=== PATIENT | female | born 1995 | race Caucasian/White ===

== ENCOUNTER 2021-02-15 22:54 | Emergency (ER) | payer MEDICAID, SELFPAY ==
[2021-02-15 22:55] VITALS: BP 160/90; PULSE 100; RESP 18; TEMP 36.6; O2SAT 97; BMI 26.6
--- NOTE | 2021-02-15 23:39 | EDS_ITS ---
HPI History of Present Illness Chief Complaint: Laceration Informant: patient and parent Narrative Narrative: 45-year-old female was washing a glass when it broke and lacerated her right index finger at the index MCP joint. Last tetanus shot was about 6 years ago. She is right-hand dominant. Tetanus Immunization: 5-10 years [facility], [facility] Medical History no medical history Home Medications Prozac 40 mg PO/SL DAILY 02/15/21 [History Last Taken Unknown] aripiprazole [Abilify] 5 mg PO DAILY 02/15/21 [History Last Taken Unknown] cephalexin 500 mg PO Q6 #20 capsule 02/15/21 [Rx Last Taken Unknown] Allergy/AdvReac Type Severity Reaction Status Date / Time No Known Allergies Allergy Verified 02/15/21 22:57 Family History no significant family his Surgical History no surgical history Social History (Updated 02/15/21 @ 23:[address] Tyler Alvarado, DO) Smoking Status: Never smoker substance use type: does not use ROS ROS ED Constitutional Constitutional ED: Denies chills, fever(s) or weight loss Eyes Eyes: Denies change in vision or diplopia ENT ENT ED: Denies ear pain, rhinorrhea or sore throat Cardiovascular Cardiovascular: Denies chest pain, orthopnea, palpitations or racing heartbeat Respiratory/Chest Respiratory/Chest: Denies cough, dyspnea or orthopnea Gastrointestinal Gastrointestinal: Denies abdominal pain, diarrhea, nausea or vomiting Genitourinary Genitourinary ED: Denies dysuria, hematuria or urinary frequency Musculoskeletal Musculoskeletal: Denies arthralgias or myalgias Integumentary Reports other Details: laceration ; Denies abscess or rash Neurologic Neurologic: Denies headache(s) or weakness Psychiatric Psychiatric: Denies anxiety, depression, suicidal ideation or suicidal thoughts Endocrine Endocrinology: Denies polydipsia, polyphagia or polyuria Allergic/Immunologic Allergic/Immunologic ED: Denies mouth swelling, tongue swelling or urticaria EXAM Physical Exam Const Vital Signs: 02/15/21 22:55 Temperature 97.9 F Temperature Source Temporal Pulse Rate 100 Respiratory Rate 18 Blood Pressure 160/90 H Blood Pressure Mean 113 Pulse Ox 97 Oxygen Delivery Method Room Air Positive well nourished and well developed General Appearance ED: well developed HEENT Reports normocephalic, head/scalp atraumatic, TM's clear and moist mucous membranes atraumatic Tympanic Membrane ED: Yes TM's clear Eyes PERRL and EOMs intact bilaterally Neck no lymphadenopathy, supple and no JVD Resp normal respiratory effort and clear to auscultation bilaterally Cardio regular rate, regular rhythm and no murmurs Rate: regular rate GI normal to inspection, nondistended, normoactive bowel sounds and non-tender Palpation: soft Back/Spine no CVA tenderness and normal ROM Extremity full ROM General Extremety ED: Negative for edema General Extremity: Negative for edema Neuro oriented x3 and CN's II-XII intact bilaterally Sensorium / Orientation: alert Motor Exam: strength 5/5 throughout Psych mental status grossly normal Mood & Affect: Negative for depressed or tearful Skin no rashes or lesions noted Skin Narrative: There is a 2 cm flap laceration over the dorsum of the right index finger MCP joint. The tendon is visualized. There is normal tendon function. The tendon does appear slightly frayed MDM MDM MDM Narrative Medical decision making narrative: The wound was locally anesthetized using 1% lidocaine. Was washed with Shur-Clens and irrigated with sterile saline and explored. Finger was taken through its range of motion I do not see a significant laceration of the extensor tendon that needs to be repaired. There is a very small area that appears to be slightly frayed. Wound was closed using 4 simple erupted 4-0 Ethilon sutures. Patient will be started on Keflex. She will be placed in AlumaFoam splint. Wound care discussed with patient return if worsening or concerns Discharge Plan Triage Chief Complaint: Laceration ED Provider: Tyler Alvarado Dx/Rx/DC Orders Clinical Impression: Laceration of right index finger, Extensor tendon laceration of hand with open wound Instructions: ED Laceration, Hand: All Closures, ED Tendon Laceration Prescriptions: New cephalexin [cephalexin] 500 MG capsule 500 mg PO Q6 Qty: 20 RF: 0 No Action aripiprazole [Abilify] 5 mg Tablet 5 mg PO DAILY RF: 0 Prozac 40 mg PO/SL DAILY RF: 0 Primary Care Provider: Care Physician,No Primary Referrals: Care Physician,No Primary [Primary Care Provider] - Clinic,NOW [NON-STAFF] - 10 Day for suture removal Disposition Disposition: Home, Self Care
[2021-02-15] MEDS: Lidocaine 1% (20 ml mdv) 20 ML Vial INFILT (23:43)
[2021-02-15] MEDS: Cephalexin 250 MG Capsule 500 MG PO (23:46)
== END 2021-02-15 23:50 | disposition home or self-care (01) ==
PROVIDERS: Emergency Provider Emergency Medicine
DX: S66.320A Laceration of extensor muscle, fascia and tendon of right index finger at wrist and hand level, initial encounter (principal); W25.XXXA Contact with sharp glass, initial encounter; Y93.G1 Activity, food preparation and clean up; Y92.9 Unspecified place or not applicable; Y99.8 Other external cause status
CPT/HCPCS: 12001; 99284

== ENCOUNTER → 2021-02-23 | Outpatient (CLI) | payer MEDICAID, SELFPAY | END | disposition home or self-care (01) | LOC: LABSPEC 15:16 | PROVIDERS: Referring Provider Physician Assistant; Visit Provider Physician Assistant | DX: U07.1 COVID-19 (principal) | CPT/HCPCS: 87635; U0005; U0003 ==

== ENCOUNTER 2021-05-28 08:39 | Outpatient (CLI) | payer BC, SELFPAY ==
--- NOTE | 2021-05-28 08:42 | US_ITS ---
STUDY: ULTRASOUND BREAST - LEFT REASON FOR EXAM: Female, 25 years old. Palpable lump left breast. TECHNIQUE: Axial and longitudinal images of the LEFT breast were performed with a high resolution ultrasound transducer. # OF IMAGES: 39 COMPARISON: None. FINDINGS: LEFT Breast: The upper half of the left breast was examined ultrasound. The patient cannot palpate the abnormality at this time. There is dense fibroglandular tissue. No sonographic abnormality is seen. US/Breast Limited Unilateral IMPRESSION: No sonographic abnormality is seen. Clinical correlation recommended. ASSESSMENT CATEGORY: BIRADS Category 1: Negative. A letter regarding these results will be sent to the patient by the facility within 30 days. Electronically Signed: Juan Riley MD at 9:36 EDT ,
== END 2021-05-28 23:59 | disposition home or self-care (01) ==
LOC: OPBI 08:41
PROVIDERS: Visit Provider Nurse Practitioner Women's Health
DX: N60.02 Solitary cyst of left breast (principal)
CPT/HCPCS: 76642

== ENCOUNTER → 2021-10-08 | Outpatient (CLI) | payer BC, SELFPAY ==
[2021-10-12 22:09] LABS: Chlamydia By Nucleic Acid AMP Negative (Negative)
[2021-10-13 12:50] LABS: Gonococcus By Nucleic Acid AMP Negative (Negative)
[2021-10-14 11:36] LABS: HPV Reflexed? NOT INDICATED
== END | disposition home or self-care (01) ==
LOC: LABSPEC 16:15
PROVIDERS: Referring Provider Nurse Practitioner Women's Health; Visit Provider Nurse Practitioner Women's Health
DX: Z12.4 Encounter for screening for malignant neoplasm of cervix (principal); Z11.3 Encounter for screening for infections with a predominantly sexual mode of transmission
CPT/HCPCS: 87491; 87591; 88175; G0145

== ENCOUNTER 2022-01-14 14:04 | Emergency (ER) | payer BC, SELFPAY ==
[2022-01-14 14:05] VITALS: BP 147/83; PULSE 74; RESP 16; TEMP 36.1; O2SAT 100; BMI 26.6
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
[2022-01-14] MEDS: DiphenhydrAMINE 50 MG/ML Syringe 25 MG IV (15:10)
[2022-01-14] MEDS: proCHLORPERazine 10 MG/2 ML Vial IV (15:10)
[2022-01-14] MEDS: 0.9% Normal Saline 1,000 ML 999 ML IV (15:11)
[2022-01-14 15:21] VITALS: RESP 16
[2022-01-14 17:00] VITALS: PULSE 72; RESP 17; O2SAT 100
== END 2022-01-14 17:03 | disposition home or self-care (01) ==
PROVIDERS: Emergency Provider Emergency Medicine; Visit Provider Emergency Medicine
DX: G44.309 Post-traumatic headache, unspecified, not intractable (principal); R11.0 Nausea
CPT/HCPCS: 96361; 96374; 96375; 99283; A4216

== ENCOUNTER → 2023-11-25 | Outpatient (CLI) | payer BC, SELFPAY ==
--- NOTE | 2023-11-25 07:36 | US_ITS ---
STUDY: ULTRASOUND OF THE FEMALE PELVIS - COMPLETE REASON FOR EXAM: Female, 28 years old. Abnormal uterine bleeding- HEAVY CYCLES LMP: November 11, 2023. TECHNIQUE: Transvaginal TECHNICAL QUALITY: Adequate. COMPARISON: None. FINDINGS: The uterus is anteverted and is in a midline position. The uterus measures 7.9 cm x 5 cm x 3.6 cm. Normal uterine cervix. The endometrium measures 10 mm in thickness, and is heterogeneous (striated). There is no demonstrated endometrial mass. There is no demonstrated myometrial mass. I.U.D. - The patient does not have an I.U.D. The right ovary is visualized. The right ovary measures 3.7 cm x 3.9 cm x 1.9 cm. 2 follicles are seen measuring 1.6 cm within the right ovary. There is no visualized right adnexal mass or complex lesion. There is normal arterial and normal venous vascularity. The left ovary is visualized. The left ovary measures 2.7 cm x 3.2 cm x 1.5 cm. There is no left ovarian cyst or ovarian mass. There is no visualized left adnexal mass or complex lesion. There is normal arterial and normal venous vascularity. There is minimal fluid in the cul-de-sac. US/Transvaginal Non- IMPRESSION: Small follicles are seen in the right ovary. Electronically Signed: Juan Riley MD at 12:20 EDT ,
== END | disposition home or self-care (01) ==
PROVIDERS: Referring Provider Advanced Practice Midwife; Visit Provider Advanced Practice Midwife
DX: N92.0 Excessive and frequent menstruation with regular cycle (principal)
CPT/HCPCS: 76830